=== PATIENT | female | born 1990 | race American Indian/Alaskan Native ===

== ENCOUNTER 2017-10-09 13:59 | Emergency (ER) | payer MEDICAID ==
--- NOTE | 2017-10-09 15:26 | Emergency Department Report ---
Chief Complaint: Vaginal Bleeding Stated Complaint: , BACK PAIN AND BLEEDING Time Seen by Provider: 10/09/17 15:20 - HPI History of Present Illness: This is a patient who is mute and deaf, and communicates by writing, who has been told she is 5 days ago by her RESTAURANT ASSISTANT and is having heavy bleeding. Limited ability to get full ROS. - ROS Review of Systems: Difficult to obtain due to patient being deaf and mute. - Exam Vital Signs: Vital Signs 10/09/17 14:09 Temperature 98.0 F Pulse Rate 100 H Respiratory 20 Rate Blood Pressure 115/75 Blood Pressure 115/75 [Right] O2 Sat by Pulse 99 Oximetry MSE screening note: Focused history and physical exam performed. Due to findings the following was ordered: We will need to see if she has a viable IUP or is having an inevitable miscarriage. At this time, I'll order the following: CBC BMP, UA, Serum HCG, Ultrasound. ED Disposition for MSE Condition: Stable
[2017-10-09] MEDS ORDERED: NACL 0.9% 1000 ML 1,000 ML IV ONE (15:37)
[2017-10-09] MEDS ORDERED: ZOFRAN IV ONE (15:37)
[2017-10-09 16:17] LABS: BUN/Creatinine Ratio 9; Blood Urea Nitrogen 6 mg/dL (7-17); Calcium 8.1 mg/dL (8.4-10.2); Hemolysis Index 9
[2017-10-09 16:29] LABS: Hematocrit 31.9 % (30.3-42.9); Hemoglobin 9.7 gm/dl (10.1-14.3); Mean Corpuscular HGB Conc 31 % (30-34); Mean Corpuscular Volume 73 fl (79-97); Platelet Count 284 K/mm3 (140-440); Red Blood Count 4.36 M/mm3 (3.65-5.03)
[2017-10-09 16:32] LABS: Mean Corpuscular Hemoglobin 22 pg (28-32); Red Cell Distribution Width 20.3 % (13.2-15.2)
--- NOTE | 2017-10-09 16:52 | Emergency Department Report ---
ED Female HPI - General Chief complaint: Vaginal Bleeding Stated complaint: , BACK PAIN AND BLEEDING Time Seen by Provider: 10/09/17 15:20 Source: patient Mode of arrival: Ambulatory Limitations: Other - History of Present Illness Initial comments: This is a patient who is mute and deaf, and communicates by writing, who has been told she is 5 days ago by her LEGAL ASSISTANT and is having heavy bleeding. Limited ability to get full ROS. Complaint: vaginal bleeding Onset/Timin -: days(s) Severity: moderate Severity scale (0 -10): 4 Quality: cramping, aching Consistency: constant Improves with: none Worsens with: none Are you Now?: Yes Last Menstrual Period: 08/31/17 EDC: 06/07/18 Associated Symptoms: vaginal bleeding - Related Data Sexually active: Yes Previous Rx's Medication Instructions Recorded Last Taken Type Acetaminophen [Tylenol Extra 500 mg PO QID #60 tablet 10/09/17 Unknown Rx Strength] Allergies Allergy/AdvReac Type Severity Reaction Status Date / Time No Known Allergies Allergy Unverified 10/09/17 14:09 ED Review of Systems ROS: Stated complaint: , BACK PAIN AND BLEEDING Other details as noted in HPI Constitutional: denies: chills, fever Eyes: denies: eye pain, eye discharge, vision change ENT: denies: ear pain, throat pain Respiratory: denies: cough, shortness of breath, wheezing Cardiovascular: denies: chest pain, palpitations Endocrine: no symptoms reported Gastrointestinal: denies: abdominal pain, nausea, diarrhea Genitourinary: other (vaginal bleeding ). denies: urgency, dysuria, frequency, hematuria, discharge Musculoskeletal: denies: back pain, joint swelling, arthralgia Skin: denies: rash, lesions Neurological: denies: headache, weakness, paresthesias Psychiatric: denies: anxiety, depression Hematological/Lymphatic: denies: easy bleeding, easy bruising ED Past Medical Hx - Past Medical History Additional medical history: hearing impaired - Social History Smoking Status: Never Smoker Substance Use Type: None - Medications Home Medications: Home Medications Medication Instructions Recorded Confirmed Last Taken Type Acetaminophen [Tylenol Extra 500 mg PO QID #60 tablet 10/09/17 Unknown Rx Strength] ED Physical Exam - General Limitations: Other General appearance: alert, in no apparent distress - Head Head exam: Present: atraumatic, normocephalic - Eye Eye exam: Present: normal appearance - ENT ENT exam: Present: mucous membranes moist - Neck Neck exam: Present: normal inspection - Respiratory Respiratory exam: Present: normal lung sounds bilaterally. Absent: respiratory distress - Cardiovascular Cardiovascular Exam: Present: regular rate, normal rhythm, normal heart sounds. Absent: systolic murmur, diastolic murmur, rubs, gallop - GI/Abdominal GI/Abdominal exam: Present: soft, normal bowel sounds. Absent: distended, tenderness, guarding, rebound, rigid, organomegaly, mass, bruit, pulsatile mass , hernia - Rectal Rectal exam: Present: deferred - Extremities Exam Extremities exam: Present: normal inspection - Back Exam Back exam: Present: normal inspection, full ROM. Absent: tenderness, CVA tenderness (R), CVA tenderness (L), muscle spasm, paraspinal tenderness, vertebral tenderness - Neurological Exam Neurological exam: Present: alert, oriented X3 - Psychiatric Psychiatric exam: Present: normal affect, normal mood - Skin Skin exam: Present: warm, dry, intact, normal color. Absent: rash ED Course Vital Signs 10/09/17 14:09 Temperature 98.0 F Pulse Rate 100 H Respiratory 20 Rate Blood Pressure 115/75 Blood Pressure 115/75 [Right] O2 Sat by Pulse 99 Oximetry ED Medical Decision Making - Lab Data Result diagrams: 10/09/17 15:41 10/09/17 15:41 Laboratory Tests 10/09/17 10/09/17 10/09/17 15:30 15:41 15:41 WBC 3.0 L RBC 4.36 Hgb 9.7 L Hct 31.9 MCV 73 L MCH 22 L MCHC 31 RDW 20.3 H Plt Count 284 [place] % (Auto) Lace Cutter Add Manual Diff Complete Total Counted 100 Seg Neutrophils % Lace Cutter Seg Neuts % (Manual) 33.0 L Band Neutrophils % 7.0 Lymphocytes % (Manual) 45.0 H Reactive Lymphs % (Man) 1.0 Monocytes % (Manual) 13.0 H Eosinophils % (Manual) 0 Basophils % (Manual) 1.0 Metamyelocytes % 0 Myelocytes % 0 Promyelocytes % 0 Blast Cells % 0 Nucleated RBC % Not Reportable Seg Neutrophils # Man 1.0 L Band Neutrophils # 0.2 Lymphocytes # (Manual) 1.4 Abs React Lymphs (Man) 0.0 Monocytes # (Manual) 0.4 Eosinophils # (Manual) 0.0 Basophils # (Manual) 0.0 Metamyelocytes # 0.0 Myelocytes # 0.0 Promyelocytes # 0.0 Blast Cells # 0.0 WBC Morphology Not Reportable Hypersegmented Neuts Not Reportable Hyposegmented Neuts Not Reportable Hypogranular Neuts Not Reportable Smudge Cells Not Reportable Toxic Granulation Not Reportable Toxic Vacuolation Not Reportable Dohle Bodies Not Reportable Pelger-Huet Anomaly Not Reportable Nasim Rods Not Reportable Platelet Estimate Appears normal Clumped Platelets Not Reportable Plt Clumps, EDTA Not Reportable Large Platelets Few Giant Platelets Not Reportable Platelet Satelliting Not Reportable Plt Morphology Comment Not Reportable RBC Morphology Not Reportable Dimorphic RBCs Not Reportable Polychromasia Not Reportable Hypochromasia 1+ Poikilocytosis Not Reportable Anisocytosis 1+ Microcytosis 1+ Macrocytosis Not Reportable Spherocytes Not Reportable Pappenheimer Bodies Not Reportable Sickle Cells Not Reportable Target Cells Not Reportable Tear Drop Cells Not Reportable Ovalocytes 1+ Helmet Cells Not Reportable Galdamez-[place] Bodies Not Reportable [place] Rings Not Reportable [place] Cells Not Reportable Bite Cells Not Reportable Crenated Cell Not Reportable Elliptocytes Not Reportable Acanthocytes (Spur) Not Reportable Rouleaux Not Reportable Hemoglobin C Crystals Not Reportable Schistocytes Not Reportable Malaria parasites Not Reportable Reggie Bodies Not Reportable Hem Pathologist Commnt No Sodium 138 Potassium 3.3 L Chloride 98.6 Carbon Dioxide 25 Anion Gap 18 BUN 6 L Creatinine 0.7 Estimated GFR > 60 BUN/Creatinine Ratio 9 Glucose 90 Calcium 8.1 L HCG, Quant Blood Type A POSITIVE 10/09/17 15:41 WBC RBC Hgb Hct MCV MCH MCHC RDW Plt Count [place] % (Auto) Add Manual Diff Total Counted Seg Neutrophils % Seg Neuts % (Manual) Band Neutrophils % Lymphocytes % (Manual) Reactive Lymphs % (Man) Monocytes % (Manual) Eosinophils % (Manual) Basophils % (Manual) Metamyelocytes % Myelocytes % Promyelocytes % Blast Cells % Nucleated RBC % Seg Neutrophils # Man Band Neutrophils # Lymphocytes # (Manual) Abs React Lymphs (Man) Monocytes # (Manual) Eosinophils # (Manual) Basophils # (Manual) Metamyelocytes # Myelocytes # Promyelocytes # Blast Cells # WBC Morphology Hypersegmented Neuts Hyposegmented Neuts Hypogranular Neuts Smudge Cells Toxic Granulation Toxic Vacuolation Dohle Bodies Pelger-Huet Anomaly Nasim Rods Platelet Estimate Clumped Platelets Plt Clumps, EDTA Large Platelets Giant Platelets Platelet Satelliting Plt Morphology Comment RBC Morphology Dimorphic RBCs Polychromasia Hypochromasia Poikilocytosis Anisocytosis Microcytosis Macrocytosis Spherocytes Pappenheimer Bodies Sickle Cells Target Cells Tear Drop Cells Ovalocytes Helmet Cells Galdamez-[place] Bodies [place] Rings [place] Cells Bite Cells Crenated Cell Elliptocytes Acanthocytes (Spur) Rouleaux Hemoglobin C Crystals Schistocytes Malaria parasites Reggie Bodies Hem Pathologist Commnt Sodium Potassium Chloride Carbon Dioxide Anion Gap BUN Creatinine Estimated GFR BUN/Creatinine Ratio Glucose Calcium HCG, Quant 1854 H Blood Type - Medical Decision Making Patient -Chinese female Deaf Mute pt is A0 who presents for vaginal bleeding 2 days patient states she was advised that she was 5 days ago by CHIEF OPERATING ENGINEER and pain started abruptly yesterday afternoon symptoms included cramping bleeding and passing clots patient denies abdominal pain at this time bleeding has decreased a dark red patient using 1 pad a day there is no fever no chills no nausea no vomiting vaginal exam mild bleeding no trauma cervix appears closed mild bleeding, labs noted today hCG 18,000 CBC normal stable ABDOMEN PELVIS LESS THAN 14 WEEKS NO INTRAUTERINE NOTED PLAN: Follow-up with CHIEF OPERATING ENGINEER for follow-up hCG discussed diagnosis of miscarriage versus possible early patient verbalizes via paper understanding of same follow-up with CHIEF OPERATING ENGINEER in 2 days, patient discharged to [facility] in stable condition at this time. Critical care attestation.: If time is entered above; I have spent that time in minutes in the direct care of this critically ill patient, excluding procedure time. ED Disposition Clinical Impression: Threatened miscarriage in early Disposition: DC-01 TO HOME OR SELFCARE Is pt being admited?: No Does the pt Need Aspirin: No Condition: Good Instructions: Threatened Miscarriage (ED) Prescriptions: Acetaminophen [Tylenol Extra Strength] 500 mg PO QID #60 tablet Referrals: PRIMARY CARE, [Primary Care Provider] - 3-5 Days Forms: Work/School Release Form(ED) Time of Disposition: 19:03
[2017-10-09 17:56] LABS: Anisocytosis 1+; Band Neutrophils # (Manual) 0.2 K/mm3; Eosinophils % (Manual) 0 % (0.0-4.3); Total Cells Counted 100
[2017-10-09 17:57] LABS: Hypochromasia 1+; Large Platelets Few; Ovalocytes 1+
--- NOTE | 2017-10-09 18:27 | Ultrasound Report ---
FINAL REPORT EXAM: US OB < = 14 WEEKS FETUS HISTORY: vaginal bleeding TECHNIQUE: Grayscale and color doppler ultrasound imaging of the pelvis was performed transabdominally. PRIORS: None. FINDINGS: Uterus: The uterus is homogeneous in echogenicity without mass. The uterus measures 9.4 x 6.0 x 6.9 centimeters. The endometrium is normal in thickness measuring 1.6 centimeters. No intrauterine is identified. Ovaries: The ovaries are normal in echogenicity without cyst or mass. Normal flow is seen to the ovaries. The right ovary measures 2.9 x 2.5 x 2.4 centimeters. The left ovary measures 2.6 x 2.6 x 2.8 centimeters. Free fluid: None. IMPRESSION: Normal transabdominal pelvic ultrasound. No intrauterine identified. Recommend followup pelvic ultrasound and beta HCG as clinically indicated.
--- NOTE | 2017-10-09 18:33 | Ultrasound Report ---
FINAL REPORT EXAM: US OB TRANSVAGINAL HISTORY: possible miscarriage TECHNIQUE: Grayscale and color doppler ultrasound imaging of the pelvis was performed transvaginally. PRIORS: None. FINDINGS: Uterus: The uterus is homogeneous in echogenicity without focal mass. The uterus measures 9.4 x 6.0 x 6.9 centimeters. Endometrium: The endometrium is normal in echogenicity. The endometrium measures 9 millimeters. Ovaries: An echogenic focus is seen in the right ovary measuring 1.3 centimeters. No left ovarian lesions are seen. Normal flow is seen to the ovaries. The right ovary measures 3.6 x 1.3 x 2.9 centimeters. The left ovary measures 2.9 x 1.6 x 2.5 centimeters. Free fluid: Small amount of free fluid in the pelvis is likely physiologic. IMPRESSION: 1. No intrauterine or ectopic identified. Follow-up pelvic ultrasound and beta HCG as clinically indicated. 2. Small echogenic lesion in the right ovary may represent a hemorrhagic cyst or corpus albicans. This can be reassessed on the follow-up study.
[2017-10-09 19:28] VITALS: BP 145/83
== END 2017-10-09 19:32 | disposition home or self-care (01) ==
LOC: ED 13:59
DX: O20.0 Threatened abortion (principal); Z3A.00 Weeks of gestation of pregnancy not specified
CPT/HCPCS: 36415; 76801; 76817; 80048; 84702; 85007; 85025; 86900; 86901; 96361; 96374; 99284; J2405; J7030